=== PATIENT | female | born 1970 | race Caucasian/White ===

== ENCOUNTER 2021-10-02 11:35 | Day surgery (SDC) | payer BC ==
[2021-10-02 12:44] VITALS: TEMP 97.6
[2021-10-02] MEDS ORDERED: Sodium Bicarbonate 2.5 MEQ/5 ML VIAL ONE (13:00)
[2021-10-02] MEDS ORDERED: Lidocaine 1% PF 5 ML VIAL ONE (13:00)
[2021-10-02 15:50] VITALS: BP 110/64
== END 2021-10-02 16:05 | disposition home or self-care (01) ==
LOC: CSHRAD 11:35
PROVIDERS: ATTEND Neurological Surgery
DX: M54.16 Radiculopathy, lumbar region (principal); M54.50 Low back pain, unspecified; M43.17 Spondylolisthesis, lumbosacral region; M48.07 Spinal stenosis, lumbosacral region
CPT/HCPCS: 62304; 72132

== ENCOUNTER 2023-02-04 11:45 | Outpatient (CLI) | payer SELFPAY | END 2023-02-04 11:46 | disposition home or self-care (01) | LOC: CSHRAD 11:45 | PROVIDERS: ATTEND Physician Assistant | DX: M54.50 Low back pain, unspecified (principal); W19.XXXA Unspecified fall, initial encounter; M25.561 Pain in right knee; Z98.890 Other specified postprocedural states; M43.17 Spondylolisthesis, lumbosacral region; T84.216A Breakdown (mechanical) of internal fixation device of vertebrae, initial encounter | CPT/HCPCS: 72100 ==

== ENCOUNTER 2023-05-02 11:37 | Emergency (ER) | payer OTHER, BC ==
[2023-05-02] MEDS ORDERED: Ketorolac Tromethamine 30 MG/ML VIAL ONE (12:24)
== END 2023-05-02 13:14 | disposition home or self-care (01) ==
LOC: CSHERS 11:37
DX: S13.9XXA Sprain of joints and ligaments of unspecified parts of neck, initial encounter (principal); E03.9 Hypothyroidism, unspecified; J45.909 Unspecified asthma, uncomplicated; V49.9XXA Car occupant (driver) (passenger) injured in unspecified traffic accident, initial encounter; Z79.899 Other long term (current) drug therapy
CPT/HCPCS: 70450; 72125; 72170; 96372; J1885

== ENCOUNTER 2023-05-08 08:28 | Outpatient (CLI) | payer BC ==
[2023-05-08] MEDS ORDERED: Iopamidol-M 200 41% 10 ML VIAL FS ONE (09:36)
== END 2023-05-08 08:29 | disposition home or self-care (01) ==
LOC: CSHRAD 08:28
PROVIDERS: ATTEND Neurological Surgery
DX: M47.27 Other spondylosis with radiculopathy, lumbosacral region (principal); T84.216A Breakdown (mechanical) of internal fixation device of vertebrae, initial encounter; Z98.890 Other specified postprocedural states
CPT/HCPCS: 62304; 72132; Q9966

== ENCOUNTER 2023-08-13 14:53 | Outpatient (CLI) | payer BC | END 2023-08-13 14:54 | disposition home or self-care (01) | LOC: CSHRAD 14:53 | PROVIDERS: ATTEND Neurological Surgery | DX: M43.16 Spondylolisthesis, lumbar region (principal); Z98.890 Other specified postprocedural states; M43.17 Spondylolisthesis, lumbosacral region; M47.817 Spondylosis without myelopathy or radiculopathy, lumbosacral region | CPT/HCPCS: 72100 ==

== ENCOUNTER 2023-10-08 14:12 | Outpatient (CLI) | payer BC | END 2023-10-08 14:13 | disposition home or self-care (01) | LOC: CSHRAD 14:12 | PROVIDERS: ATTEND Neurological Surgery | DX: M54.50 Low back pain, unspecified (principal); M47.816 Spondylosis without myelopathy or radiculopathy, lumbar region | CPT/HCPCS: 72100 ==

== ENCOUNTER 2023-10-10 13:31 | Emergency (ER) | payer BC ==
[2023-10-10 16:27] LABS: SARS-CoV-2 NAA Rapid Test DETECTED (NotDetected)
== END 2023-10-10 14:44 | disposition home or self-care (01) ==
LOC: CSHERS 13:31
DX: U07.1 COVID-19 (principal)
CPT/HCPCS: 99283

== ENCOUNTER 2024-08-20 11:00 | Emergency (ER) | payer BC ==
[2024-08-20] MEDS ORDERED: Ketorolac Tromethamine 30 MG (1 mL) VIAL ONE (12:16)
== END 2024-08-20 12:25 | disposition home or self-care (01) ==
LOC: CSHERS 11:00
DX: M54.50 Low back pain, unspecified (principal); E03.9 Hypothyroidism, unspecified; J45.909 Unspecified asthma, uncomplicated
CPT/HCPCS: 96372; 99283; J1885

== ENCOUNTER 2024-08-27 09:34 | Emergency (ER) | payer BC ==
[2024-08-27] MEDS ORDERED: Azithromycin 250 MG TAB ONE (10:45)
[2024-08-27] MEDS ORDERED: methylPREDNISolone Sod Succ/PF 125 MG/2 ML VIAL ONE (10:45)
[2024-08-27] MEDS ORDERED: Ibuprofen 200 MG TAB ONE (10:45)
== END 2024-08-27 11:45 | disposition home or self-care (01) ==
LOC: CSHERS 09:34
DX: J02.9 Acute pharyngitis, unspecified (principal); Z55.6 Problems related to health literacy
CPT/HCPCS: 87081; 87430; 96372; 99283; J2919